=== PATIENT | female | born 1945 | race Caucasian/White ===

== ENCOUNTER 2024-11-02 12:01 | Emergency (ER) | payer MEDICARE ==
[2024-11-02] MEDS ORDERED: Cyclobenzaprine 10 MG TAB ONE (12:27)
[2024-11-02] MEDS ORDERED: Ketorolac Tromethamine 30 MG (1 mL) VIAL ONE (12:27)
== END 2024-11-02 12:40 | disposition home or self-care (01) ==
LOC: NAV ERS 12:01
DX: M54.50 Low back pain, unspecified (principal); I10 Essential (primary) hypertension
CPT/HCPCS: 96372; 99283; J1885